=== PATIENT | female | born 1960 | race Caucasian/White ===

== ENCOUNTER → 2020-05-20 | Outpatient (CLI) | payer MEDICARE, OTHER ==
[~2020-05-20] MED LIST: ASPIR 8181 MG PO; BREO ELLIPTA 21 EACH INH; CARAFATE1 GM PO; CLARITIN 10MG T10 MG PO; CLARITIN10 MG PO; COREG12.5 MG PO; GLUCOPHAGE1000 MG PO; GLUCOTROL 10 MG10 MG PO; GLUCOTROL10 MG PO; HUMALOG100 UNIT/1 SC; HYDROCHLOROTHIA25 MG PO; LANTUS100 UNIT/1 SC; LEVOFLOXACIN750 MG PO; LIPITOR40 MG PO; MACRODANTIN50 MG PO; METFORMIN HCL1000 MG PO; MIRALAX PACK 171 PKT PO; NAPROSYN250 MG PO; NEURONTIN800 MG PO; NEXIUM40 MG PO; ONDANSETRON HCL4 MG PO; OXYCODONE HCL15 MG PO; PERCOCET 10-321 EACH PO; PROAIR DIGIHAL90 MCG INH; SINGULAIR10 MG PO; TOUJEO MAX300 UNIT/1 SQ; TYLENOL ARTHRITIS; XANAX1 MG PO; ZESTRIL10 MG PO
== END ==
LOC: KOH-I 14:47
DX: M25.571 Pain in right ankle and joints of right foot (principal); M79.671 Pain in right foot; M21.961 Unspecified acquired deformity of right lower leg; M89.8X7 Other specified disorders of bone, ankle and foot
CPT/HCPCS: 73610; 73630

== ENCOUNTER → 2020-05-27 | Outpatient (CLI) | payer MEDICARE, OTHER ==
[2020-05-27 13:29] LABS: HEMOGLOBIN 14.2 gm/dl (12.3-15.3); RED BLOOD COUNT 5.26 M/UL (4.00-5.10); WHITE BLOOD COUNT 10.5 K/UL (4.5-11.0)
[2020-05-27 13:56] LABS: BUN/CREATININE RATIO 21 (0-10)
== END ==
LOC: OPSV2 12:00
PROVIDERS: Podiatrist Foot & Ankle Surgery
DX: Z01.818 Encounter for other preprocedural examination (principal); M89.372 Hypertrophy of bone, left ankle and foot; L97.529 Non-pressure chronic ulcer of other part of left foot with unspecified severity
CPT/HCPCS: 36415; 71046; 80048; 85027; 93005

== ENCOUNTER → 2020-06-04 | Day surgery (SDC) | payer MEDICARE, OTHER ==
[~2020-06-04] VITALS: Ht 167.6 cm; Wt 114.8 kg
== END | disposition home or self-care (01) ==
LOC: OR 06:04
DX: M89.372 Hypertrophy of bone, left ankle and foot (principal); E11.621 Type 2 diabetes mellitus with foot ulcer; L97.529 Non-pressure chronic ulcer of other part of left foot with unspecified severity; E11.40 Type 2 diabetes mellitus with diabetic neuropathy, unspecified; I11.0 Hypertensive heart disease with heart failure; I50.9 Heart failure, unspecified; E78.5 Hyperlipidemia, unspecified; J45.909 Unspecified asthma, uncomplicated; M19.90 Unspecified osteoarthritis, unspecified site; D64.9 Anemia, unspecified; Z88.5 Allergy status to narcotic agent; Z88.2 Allergy status to sulfonamides; Z95.9 Presence of cardiac and vascular implant and graft, unspecified
CPT/HCPCS: 73630; 82962; J0690; J1100; J1885; J2250; J2405; J2704; J2765; J2795; J3010; J3370; J7030; J7120; Q4133

== ENCOUNTER → 2020-06-11 | Outpatient (CLI) | payer MEDICARE, OTHER | LOC: US 06-09 15:30 | DX: R22.42 Localized swelling, mass and lump, left lower limb (principal) | CPT/HCPCS: 93971 ==

== ENCOUNTER 2020-10-04 17:31 | Inpatient (IN) | payer MEDICARE, OTHER ==
[~2020-10-04] VITALS: Ht 165.1 cm; Wt 113.4 kg
[~2020-10-04 17:31] MED LIST changes: -AMIODARONE HCL200 MG PO; -ELIQUIS5 MG PO; -ENTRESTO 24 MG1 EACH PO; -FUROSEMIDE20 MG PO; -MACROBID 100 M100 MG PO
[2020-10-04] MEDS ORDERED: ENTRESTO 24 MG1 EACH PO (21:56)
[2020-10-04] MEDS ORDERED: ELIQUIS5 MG PO (21:56)
[2020-10-04] MEDS ORDERED: MACROBID 100 M100 MG PO (21:57)
[2020-10-04] MEDS ORDERED: FUROSEMIDE20 MG PO (21:57)
[2020-10-04] MEDS ORDERED: AMIODARONE HCL200 MG PO (21:57)
[2020-10-04 23:29] LABS: RED BLOOD COUNT 5.43 M/UL (4.00-5.10); WHITE BLOOD COUNT 8.4 K/UL (4.5-11.0)
[2020-10-04 23:43] LABS: BUN/CREATININE RATIO 17 (0-10)
[2020-10-06 06:32] LABS: HEMOGLOBIN 10.9 gm/dl (12.3-15.3); RED BLOOD COUNT 4.7 M/UL (4.00-5.10); WHITE BLOOD COUNT 6.2 K/UL (4.5-11.0)
[2020-10-06 07:02] LABS: BUN/CREATININE RATIO 17 (0-10)
[2020-10-07 06:45] LABS: RED BLOOD COUNT 4.7 M/UL (4.00-5.10)
[2020-10-07 06:47] LABS: WHITE BLOOD COUNT 8.6 K/UL (4.5-11.0)
--- NOTE | 2020-10-08 11:07 | NUR ---
0850: RN IN ROOM ATTEMPTING TO OBTAIN IV ACCESS, PATIENT POORLY RESPPONSIVE; GLUCOSE NOTED AT 275. AROUSES TO STERNAL RUB, STATES, "I'M SLEEPY". AVTAR ARECHIGA FOR ROUNDS, UPDATED. LAST PAIN MED AT 0507 AND 1817 THE NIGHT BEFORE. NARCAN GIVEN WITH PATIENT MORE AROUSABLE. STATES "I HAVE NOT SLEPT I AM SO TIRED AND NAUSEATED". ABG AND CXR ORDERED.
--- NOTE | 2020-10-08 17:43 | NUR ---
20g x 10cm midline placed in the left basilic vein, using ultrasound guidance. Aspirates and flushes well. No complications.
[2020-10-09 06:58] LABS: HEMOGLOBIN 10.4 gm/dl (12.3-15.3); RED BLOOD COUNT 4.44 M/UL (4.00-5.10)
[2020-10-10 05:39] LABS: HEMOGLOBIN 10.4 gm/dl (12.3-15.3); RED BLOOD COUNT 4.52 M/UL (4.00-5.10); WHITE BLOOD COUNT 6.1 K/UL (4.5-11.0)
[2020-10-11 06:43] LABS: HEMOGLOBIN 10.7 gm/dl (12.3-15.3); RED BLOOD COUNT 4.64 M/UL (4.00-5.10)
[2020-10-11 07:08] LABS: BUN/CREATININE RATIO 23 (0-10)
[2020-10-12 05:29] LABS: HEMOGLOBIN 10.1 gm/dl (12.3-15.3); RED BLOOD COUNT 4.36 M/UL (4.00-5.10); WHITE BLOOD COUNT 6.7 K/UL (4.5-11.0)
[2020-10-12 05:54] LABS: BUN/CREATININE RATIO 16 (0-10)
--- NOTE | 2020-10-12 18:15 | NUR ---
DR TRIPLETT NOTIFIED OF PT REFUSING VANCOMYCIN, PT C/O SOLEDAD MAKING HER ITCH
--- NOTE | 2020-10-12 20:55 | NUR ---
1800 Chart review not completed by day shift
[2020-10-13 02:56] LABS: HEMOGLOBIN 10.5 gm/dl (12.3-15.3); RED BLOOD COUNT 4.51 M/UL (4.00-5.10); WHITE BLOOD COUNT 7.7 K/UL (4.5-11.0)
[2020-10-13 03:15] LABS: BUN/CREATININE RATIO 15 (0-10)
--- NOTE | 2020-10-13 21:02 | NUR ---
1800 CHART REVIEW NOT COMPLETED ON DAY SHIFT
--- NOTE | 2020-10-14 03:29 | NUR ---
Dr. Hummel call to request orders for PT consult for non weight bearing on right foot and social service consult regarding continued IV antibiotic theraphy at home of merrem and clindamycin for 4 weeks at home.
[2020-10-14 07:57] LABS: HEMOGLOBIN 10.8 gm/dl (12.3-15.3); RED BLOOD COUNT 4.68 M/UL (4.00-5.10)
[2020-10-14 08:01] LABS: WHITE BLOOD COUNT 10.7 K/UL (4.5-11.0)
[2020-10-15 06:29] LABS: HEMOGLOBIN 9.4 gm/dl (12.3-15.3); WHITE BLOOD COUNT 11.3 K/UL (4.5-11.0)
[2020-10-15 06:44] LABS: RED BLOOD COUNT 4.19 M/UL (4.00-5.10)
[2020-10-15 06:53] LABS: BUN/CREATININE RATIO 22 (0-10)
[2020-10-15] MEDS ORDERED: PERCOCET 5/325 T1 EA PO (12:06)
[2020-10-15] MEDS ORDERED: VITAMIN D21250 MCG PO (12:06)
[2020-10-15] MEDS ORDERED: ALENDRONATE SOD10 MG PO (12:06)
== END 2020-10-15 17:52 | disposition home health service (06) | DRG 40 ==
LOC: M/S 21:09
PROVIDERS: Internal Medicine; Physician Assistant; Podiatrist Foot & Ankle Surgery; ADMIT Internal Medicine
PROC: 0QHJ05Z Insertion of External Fixation Device into Right Fibula, Open Approach (ICD-10-PCS; 2020-10-06)
PROC: 0L8N0ZZ Division of Right Lower Leg Tendon, Open Approach (ICD-10-PCS; 2020-10-06)
PROC: 0S9F3ZZ Drainage of Right Ankle Joint, Percutaneous Approach (ICD-10-PCS; 2020-10-06)
PROC: 0HRMXK3 Replacement of Right Foot Skin with Nonautologous Tissue Substitute, Full Thickness, External Approach (ICD-10-PCS; 2020-10-06)
PROC: 0SGH0JZ Fusion of Right Tarsal Joint with Synthetic Substitute, Open Approach (ICD-10-PCS; 2020-10-13)
PROC: 0QUJ0JZ Supplement Right Fibula with Synthetic Substitute, Open Approach (ICD-10-PCS; 2020-10-13)
PROC: 0SGF0JZ Fusion of Right Ankle Joint with Synthetic Substitute, Open Approach (ICD-10-PCS; principal; 2020-10-13 15:45)
PROC: 0SGH0JZ Fusion of Right Tarsal Joint with Synthetic Substitute, Open Approach (ICD-10-PCS; 2020-10-13 15:45)
DX: E11.610 Type 2 diabetes mellitus with diabetic neuropathic arthropathy (principal); G92 Toxic encephalopathy; J69.0 Pneumonitis due to inhalation of food and vomit; Z20.822 Contact with and (suspected) exposure to COVID-19; M80.871A Other osteoporosis with current pathological fracture, right ankle and foot, initial encounter for fracture; M86.8X7 Other osteomyelitis, ankle and foot; N17.9 Acute kidney failure, unspecified; J98.11 Atelectasis; Z68.41 Body mass index [BMI] 40.0-44.9, adult; I50.22 Chronic systolic (congestive) heart failure; M14.671 Charcot's joint, right ankle and foot; E11.69 Type 2 diabetes mellitus with other specified complication; M25.374 Other instability, right foot; M25.48 Effusion, other site; M25.371 Other instability, right ankle; E66.01 Morbid (severe) obesity due to excess calories; E11.65 Type 2 diabetes mellitus with hyperglycemia; T40.605A Adverse effect of unspecified narcotics, initial encounter; E78.5 Hyperlipidemia, unspecified; I48.0 Paroxysmal atrial fibrillation; K21.9 Gastro-esophageal reflux disease without esophagitis; I11.0 Hypertensive heart disease with heart failure; E83.51 Hypocalcemia; I25.10 Atherosclerotic heart disease of native coronary artery without angina pectoris; Z79.4 Long term (current) use of insulin; Z79.01 Long term (current) use of anticoagulants; Z90.49 Acquired absence of other specified parts of digestive tract; Z88.4 Allergy status to anesthetic agent; Z88.2 Allergy status to sulfonamides; Z82.49 Family history of ischemic heart disease and other diseases of the circulatory system
CPT/HCPCS: 36415; 36600; 71045; 73600; 73610; 73630; 73701; 76000; 80048; 80053; 80202; 82436; 82570; 82728; 82803; 82962; 83605; 83735; 83880; 84100; 84133; 84156; 84300; 85025; 85027; 85379; 85610; 85652; 85730; 86140; 87040; 87070; 87205; 93005; 94760; 97161; 97164; 97530-GP-CQ; C1713; C1751; J0171; J0360; J1100; J1170; J1200; J1335; J1650; J2001; J2185; J2250; J2310; J2405; J2430; J2704; J2710; J2795; J3010; J3370; J7030; J7050; J7070; J7120; Q4133; Q9967; U0002

== ENCOUNTER → 2020-10-04 | Outpatient (CLI) | payer MEDICARE, OTHER ==
[~2020-10-04] MED LIST changes: +AMIODARONE HCL200 MG PO; +ELIQUIS5 MG PO; +ENTRESTO 24 MG1 EACH PO; +FUROSEMIDE20 MG PO; +MACROBID 100 M100 MG PO
== END ==
LOC: KOH-I 16:22
DX: M25.571 Pain in right ankle and joints of right foot (principal); M79.671 Pain in right foot; M19.071 Primary osteoarthritis, right ankle and foot; M79.89 Other specified soft tissue disorders; Z89.421 Acquired absence of other right toe(s)
CPT/HCPCS: 73610; 73630

== ENCOUNTER → 2020-10-21 | Outpatient (CLI) | payer OTHER, MEDICARE ==
[~2020-10-21] MED LIST changes: +ALENDRONATE SOD10 MG PO; +AMIODARONE HCL200 MG PO; +ELIQUIS5 MG PO; +ENTRESTO 24 MG1 EACH PO; +FUROSEMIDE20 MG PO; +MACROBID 100 M100 MG PO; +PERCOCET 5/325 T1 EA PO; +VITAMIN D21250 MCG PO
== END ==
LOC: KOH-I 15:34
DX: M79.671 Pain in right foot (principal); M25.571 Pain in right ankle and joints of right foot; M81.0 Age-related osteoporosis without current pathological fracture; Z96.698 Presence of other orthopedic joint implants
CPT/HCPCS: 73610; 73630

== ENCOUNTER → 2020-11-08 | Outpatient (CLI) | payer MEDICARE, OTHER | LOC: KOH-I 15:24 | DX: M79.671 Pain in right foot (principal); M25.571 Pain in right ankle and joints of right foot | CPT/HCPCS: 73610; 73630 ==

== ENCOUNTER → 2020-11-29 | Outpatient (CLI) | payer MEDICARE, OTHER | LOC: KOH-I 14:09 | DX: M25.571 Pain in right ankle and joints of right foot (principal); M79.671 Pain in right foot; Z98.1 Arthrodesis status | CPT/HCPCS: 73610; 73630 ==

== ENCOUNTER → 2020-12-23 | Outpatient (CLI) | payer MEDICARE, OTHER | LOC: KOH-I 12-17 11:00 | DX: M14.671 Charcot's joint, right ankle and foot (principal) | CPT/HCPCS: 73700 ==

== ENCOUNTER → 2021-01-18 | Outpatient (CLI) | payer MEDICARE, OTHER | LOC: KOH-I 16:03 | DX: M79.671 Pain in right foot (principal); M25.571 Pain in right ankle and joints of right foot | CPT/HCPCS: 73610; 73630 ==

== ENCOUNTER → 2021-02-14 | Outpatient (CLI) | payer MEDICARE | LOC: KOH-I 15:24 | DX: M25.571 Pain in right ankle and joints of right foot (principal); M79.671 Pain in right foot; R93.6 Abnormal findings on diagnostic imaging of limbs | CPT/HCPCS: 73610; 73630 ==

== ENCOUNTER 2021-02-23 13:27 | Inpatient (IN) | payer MEDICARE, OTHER ==
[~2021-02-23] VITALS: Ht 167.6 cm; Wt 113.4 kg
[~2021-02-23 13:27] MED LIST changes: -AUGMENTIN 875-1 EACH PO; -CALCITONIN-SAL3.7 ML; -DAILY VALUE1 EACH PO; -DRISDOL1250 MCG PO; -ENTRESTO 24 MG1 EACH PO; -FUROSEMIDE20 MG PO; -LEVOFLOXACIN500 MG PO
[2021-02-23 14:36] LABS: HEMOGLOBIN 10.7 gm/dl (12.3-15.3); RED BLOOD COUNT 4.55 M/UL (4.00-5.10); WHITE BLOOD COUNT 8.6 K/UL (4.5-11.0)
[2021-02-23 15:11] LABS: BUN/CREATININE RATIO 22 (0-10)
[2021-02-23] MEDS ORDERED: ALENDRONATE SOD10 MG PO (16:35)
[2021-02-23] MEDS ORDERED: DRISDOL1250 MCG PO (16:37)
[2021-02-23] MEDS ORDERED: AUGMENTIN 875-1 EACH PO (16:41)
[2021-02-23] MEDS ORDERED: LEVOFLOXACIN500 MG PO (16:41)
[2021-02-23] MEDS ORDERED: OXYCODONE HCL15 MG PO (16:41)
[2021-02-23] MEDS ORDERED: DAILY VALUE1 EACH PO (16:43)
[2021-02-23] MEDS ORDERED: CALCITONIN-SAL3.7 ML (16:43)
[2021-02-23 19:41] LABS: HEMOGLOBIN 10.1 gm/dl (12.3-15.3); RED BLOOD COUNT 4.35 M/UL (4.00-5.10); WHITE BLOOD COUNT 7.9 K/UL (4.5-11.0)
[2021-02-23] MEDS ORDERED: ENTRESTO 24 MG1 EACH PO (21:56)
[2021-02-23] MEDS ORDERED: FUROSEMIDE20 MG PO (21:57)
[2021-02-24 02:13] LABS: HEMOGLOBIN 9.5 gm/dl (12.3-15.3); RED BLOOD COUNT 4.09 M/UL (4.00-5.10); WHITE BLOOD COUNT 7.3 K/UL (4.5-11.0)
[2021-02-24 02:36] LABS: BUN/CREATININE RATIO 23 (0-10)
[2021-02-25 07:57] LABS: BUN/CREATININE RATIO 19 (0-10)
[2021-02-25 09:02] LABS: RED BLOOD COUNT 3.93 M/UL (4.00-5.10); WHITE BLOOD COUNT 7.7 K/UL (4.5-11.0)
[2021-02-26 07:16] LABS: RED BLOOD COUNT 3.96 M/UL (4.00-5.10)
[2021-02-26 07:24] LABS: WHITE BLOOD COUNT 9.9 K/UL (4.5-11.0)
[2021-02-27 04:20] LABS: HEMOGLOBIN 8.8 gm/dl (12.3-15.3); RED BLOOD COUNT 3.73 M/UL (4.00-5.10); WHITE BLOOD COUNT 14.7 K/UL (4.5-11.0)
--- NOTE | 2021-02-27 05:27 | NUR ---
Rounded on the patient At 0248 patient was sleeping and woke up when I entered the room. I assessed her Right leg and dressing asked if she needed anything and left the room. Patient was alert and resting comfortable. 0320 Ruchi obtained vitals and patient was awake Temp 98.1 HR 70,RR 18, O296% BP.102/54 0355 tele called to notify me the patients HR was in the 20s, I immediately ran to the patients room to check her. Glo came also, we sternal rubbed the patient and attempted to arouse her. 0356 a staff assist was called and I grabbed the crash cart and took it to the bedside, obtained BGL of 236, O2 was not obtainable at this point. 035t QUALITY IMPROVEMENT COORDINATOR (RN) was called. 0358 bagging was initiated. 0359 QUALITY IMPROVEMENT COORDINATOR (RN) arrived nasal trumpet inserted for airway and bagging continued. 0400 BP 93/60, HR 72, RR10 O2 100% with bagging through nasal trumpet. 0402 20G Left hand (second IV) patient had existing working IV (20G Right Anterior forearm). 0.4mg narcan @ 0405 and then second dose @ 0409 IVP. Labs ordered via Dr Paredes (CBC, CMP, Cardiacs, lactic, blood clots) EKG and ABG's ordered STAT. 0407 BP 128/53, O2 91%, bagging, HR 74, RR 14, after second dose patient was able to answer simple questions with brief response. 0149 4 mg zofran IVP and 0420 a thrid IV started (18 G right AC) orders placed for CT w/ and w/out contrast. Resource Rn transported patient to nov and then to [facility] room 2114. horticultural services supervisor and Dr Paredes At the bedside after QUALITY IMPROVEMENT COORDINATOR (RN) iniated.
[2021-02-28 05:08] LABS: RED BLOOD COUNT 3.47 M/UL (4.00-5.10)
[2021-03-01 03:56] LABS: RED BLOOD COUNT 3.78 M/UL (4.00-5.10)
[2021-03-01 04:22] LABS: BUN/CREATININE RATIO 27 (0-10)
[2021-03-02 03:35] LABS: BUN/CREATININE RATIO 25 (0-10)
[2021-03-04 07:40] LABS: HEMOGLOBIN 9.1 gm/dl (12.3-15.3); RED BLOOD COUNT 3.91 M/UL (4.00-5.10); WHITE BLOOD COUNT 8.2 K/UL (4.5-11.0)
[2021-03-04 08:01] LABS: BUN/CREATININE RATIO 15 (0-10)
[2021-03-06 10:44] LABS: BUN/CREATININE RATIO 20 (0-10)
--- NOTE | 2021-03-06 14:54 | NUR ---
PATIENT HAD A BLOOD PRESSURE OF 183/91. I ADMINISTERED PATIENTS 10 MG IV HYDRALIZINE. RECHECKED BP ONE HOUR LATER AND IT IS 169/92. NOTIFIED DR. KENT OF PATIENTS BLOOD PRESSURE AGAIN AND SHE SAID IT WAS OKAY TO DISCHARGE PATIENT.
[2021-03-08] MEDS ORDERED: HUMALOG 10100 UNITS/ SC (12:54)
[2021-03-08] MEDS ORDERED: ROXICODONE TAB 55 MG PO (12:54)
[2021-03-08] MEDS ORDERED: GABAPENTIN400 MG PO (12:54)
[2021-03-08] MEDS ORDERED: CHRONULAC20 GM/30 M PO (12:54)
[2021-03-08] MEDS ORDERED: POLYETHYLENE GL17 GM PO (12:54)
[2021-03-08] MEDS ORDERED: FUROSEMIDE40 MG PO (12:54)
[2021-03-09 07:13] LABS: BUN/CREATININE RATIO 15 (0-10)
[2021-03-11 05:44] LABS: HEMOGLOBIN 9.9 gm/dl (12.3-15.3); RED BLOOD COUNT 4.26 M/UL (4.00-5.10); WHITE BLOOD COUNT 5.4 K/UL (4.5-11.0)
[2021-03-11 05:55] LABS: BUN/CREATININE RATIO 16 (0-10)
--- NOTE | 2021-03-11 12:33 | NUR ---
SURGEON ORDERED PT TO FOLLOW UP IN 1 WEEK. LEAVE ARACELIS IN PLACE AND NO WOUND CARE ORDERS.
[2021-03-11] MEDS ORDERED: POLYETHYLENE GL17 GM PO (13:25)
--- NOTE | 2021-03-11 15:55 | NUR ---
PT ROOM AIR SAT IS 96%. PT STATES SHE HAD A NON-DOCUMENTED BOWEL MOVEMENT T-2 DAYS AGO.
== END 2021-03-11 15:12 | disposition home health service (06) | DRG 239 ==
LOC: ER1 13:27 → M/S 16:05 → PROG CARE 16:05 → CDU 16:05 → 3 EAST 16:05 → M/S 02-24 15:58 → CCU 02-27 04:20 → PROG CARE 02-28 15:16 → M/S 03-03 23:09
PROVIDERS: Emergency Medicine; Internal Medicine; Internal Medicine Infectious Disease; ADMIT Internal Medicine
PROC: B24BZZZ Ultrasonography of Heart with Aorta (ICD-10-PCS; 2021-02-24)
PROC: 0Y6H0Z3 Detachment at Right Lower Leg, Low, Open Approach (ICD-10-PCS; principal; 2021-02-25)
PROC: 8E0ZXY6 Isolation (ICD-10-PCS; 2021-03-08)
DX: E11.52 Type 2 diabetes mellitus with diabetic peripheral angiopathy with gangrene (principal); J96.21 Acute and chronic respiratory failure with hypoxia; I50.23 Acute on chronic systolic (congestive) heart failure; U07.1 COVID-19; A48.0 Gas gangrene; D62 Acute posthemorrhagic anemia; Z68.41 Body mass index [BMI] 40.0-44.9, adult; J98.11 Atelectasis; I48.0 Paroxysmal atrial fibrillation; E11.610 Type 2 diabetes mellitus with diabetic neuropathic arthropathy; E87.5 Hyperkalemia; E66.01 Morbid (severe) obesity due to excess calories; J98.2 Interstitial emphysema; I08.1 Rheumatic disorders of both mitral and tricuspid valves; R00.1 Bradycardia, unspecified; T43.625A Adverse effect of amphetamines, initial encounter; T40.2X5A Adverse effect of other opioids, initial encounter; I11.0 Hypertensive heart disease with heart failure; D50.9 Iron deficiency anemia, unspecified; E78.5 Hyperlipidemia, unspecified; Z90.710 Acquired absence of both cervix and uterus; Z79.01 Long term (current) use of anticoagulants; Z90.49 Acquired absence of other specified parts of digestive tract; Z98.890 Other specified postprocedural states; Z88.1 Allergy status to other antibiotic agents; Z88.2 Allergy status to sulfonamides; Z88.6 Allergy status to analgesic agent; Z88.8 Allergy status to other drugs, medicaments and biological substances
CPT/HCPCS: ECHO; 36415; 36600; 70450; 71045; 71275; 73630; 80048; 80053; 82140; 82550; 82553; 82803; 82962; 83540; 83550; 83605; 83880; 84484; 85025; 85027; 85610; 85652; 86140; 86850; 86900; 86901; 87040; 93005; 93306; 94660; 94760; 96374; 96375; 97110; 97162; 97165; 97530; 97530-GP-CQ; 97535; 99284; J0878; J1100; J1756; J1940; J2001; J2185; J2310; J2405; J2704; J2710; J3010; J7030; J7120; Q9967; U0002; U0003

== ENCOUNTER → 2021-02-23 | Outpatient (CLI) | payer MEDICARE, OTHER ==
[~2021-02-23] MED LIST changes: +AUGMENTIN 875-1 EACH PO; +CALCITONIN-SAL3.7 ML; +DAILY VALUE1 EACH PO; +DRISDOL1250 MCG PO; -GLUCOTROL 10 MG10 MG PO; -HUMALOG100 UNIT/1 SC; +LEVOFLOXACIN500 MG PO; +NOVOLOG FL100 UNIT/1 INJ
[2021-02-23 09:36] LABS: HEMOGLOBIN 10.4 gm/dl (12.3-15.3); RED BLOOD COUNT 4.35 M/UL (4.00-5.10); WHITE BLOOD COUNT 8.5 K/UL (4.5-11.0)
== END ==
LOC: NM 02-18 09:00
PROVIDERS: Podiatrist Foot & Ankle Surgery
DX: M14.671 Charcot's joint, right ankle and foot (principal); M86.8X7 Other osteomyelitis, ankle and foot
CPT/HCPCS: 36415; 85027; 85652; 86140; 87040